=== PATIENT | female | born 1995 | race Caucasian/White ===

== ENCOUNTER 2024-12-06 17:54 | Emergency (ER) | payer MEDICAID ==
[~2024-12-06] VITALS: Ht 157.5 cm; Wt 61.7 kg
[2024-12-06 19:26] LABS: Urine Protein, UAD Negative (Negative)
[2024-12-06 19:31] LABS: Hematocrit 39.2 % (36.0-46.0); Hemoglobin 13.8 g/dL (12.2-16.2); Mean Corpuscular Hemoglobin 30.5 pg (28.0-32.0); Mean Corpuscular Volume 86.7 fL (80.0-100.0); Nucleated Red Blood Cells % 0.1 %
[2024-12-06 19:56] LABS: Albumin 4.3 g/dL (3.2-4.8); Anion Gap 11 (5-15); Calcium 9.0 mg/dL (8.7-10.4); Carbon Dioxide 21 mmol/L (20-31); Potassium 3.9 mmol/L (3.5-5.1); Sodium 139 mmol/L (136-145); Total Protein 7.0 g/dL (5.7-8.2)
[2024-12-06 19:58] LABS: Alanine Aminotransferase < 9 U/L (7-40); Alkaline Phosphatase 43 U/L (46-116); BUN/Creatinine Ratio 7.9 (10.0-20.0); Bilirubin, Total 0.2 mg/dL (0.2-1.0); Blood Urea Nitrogen < 5 mg/dL (9-23); Chloride 107 mmol/L (98-107); Glucose 70 mg/dL (74-106)
--- NOTE | 2024-12-06 19:58 | DVH ---
INDICATION: pelvic pain TECHNIQUE: Multiple real-time grayscale transabdominal sonographic images along with color and duplex Doppler of the uterus and ovaries were obtained. COMPARISON: None FINDINGS: The uterus measures 11.77 x 9.7 x 6.6 cm. Gestational sac and pole are noted in the e ndometrial canal. The right ovary measures 1.67 x 1.03 x 2.21 cm. Right ovarian volume is 1.99 cc. The left ovary measures 2.65 x 1.86 x 3.57 cm. Volume of the left ovary is 9.19 cc. Subsequent color and duplex Doppler interrogation of the ovaries demonstrated symmetric vascular flow to both ovaries, though this does not exclude the possibility of torsion due to the dual blood suppl y. Gestational sac measures 5.47 cm consistent with 11 weeks 3 days. Yolk sac is not visualized. [place]-rump length is 3.79 cm consistent with 10 weeks 5 days. heart rate is 173 beats per minute IMPRESSION: 1. Average gestational age of 11 weeks 1 day; GREGORIO: 06/26/2025 2. FHR: 173 beats per minute. 3. There appears to be a subchorionic hemorrhage adjacent to the gestational sac.
--- NOTE | 2024-12-06 20:33 | ED.PDOC ---
PEDIATRIC GENETIC COUNSELOR HPI Comments 29 y/o F presents with c/c of shooting pelvic pain that radiates to her upper abdomen Patient is 10 weeks with her 5th ([id number], 1 , 1 miscarriage), currently. She reports sudden, unprovoked, and atraumatic onset of pain, this morning, with associative one episode of diarrhea. Pain resolved for a few hours temporarily after eating' Diarrhea has resolved prior to ED arrival. Patient is unable to recall diarrhea appearance. Patient also reports morning sickness nausea and vomiting that she has had since the start of her current . She denies having any further acute symptoms. Patient denies any vaginal bleed. Patient has an upcoming appointment with PEDIATRIC GENETIC COUNSELOR next Friday on 12/13. HPI: Past medical history: Denies Past surgical history: Denies NGUYEN: HPI: Poor Historian. 29-year-old female one one miscarriage about 10 weeks gestation presents to emergency department for one episode of lower abdominal pain that radiated up to her upper abdomen in the morning. Patient has a associated diarrhea unsure of stool color. By the time I evaluated the patient, all her abdominal pain has resolved and her diarrhea has resolved. She had this pain in the morning with the diarrhea and then went away after she ate but came back again and was advised to come here to get checked. Denies any vaginal bleed or urinary symptoms or fever. Patient has been having morning sickness for awhile which is not new for her. She is seeing her OB Gyne doctor this coming Friday. Past Medical History: Past Surgical History: REVIEW OF SYSTEMS: CONSTITUTIONAL: Denies acute: fever, diaphoresis, chills, generalized weakness. HEAD: Denies acute: headache, photophobia Eyes: Denies acute: Double vision, vision loss, eye pain, eye discharge. EARS: Denies acute: tinnitus, hearing loss, ear discharge, ear pain, THROAT: Denies acute: sore throat, swelling, difficulty swallowing , pain with swallowing, change in voice. NECK: Denies acute: neck pain, neck swelling, stiff neck. HEART: Denies acute : chest pain, palpitations, LUNGS: Denies acute: SOB, wheezing, cough, hemoptysis ABDOMEN: Denies acute: , melena , hematemesis, hematochezia SKIN: Denies acute: rash, redness, lesions, itchiness. EXTREMITIES: Denies acute: calf pain, numbness, tingling, weakness, denies pain in extremity. Denies acute: Low back pain. Neuro: Denies acute: focal neurological deficit, motor or sensory focal neurological deficit, tremors, seizure like activity, confusion, dizziness, change in mental status, loss of bowel or bladder function, cauda equina like symptoms. : Denies acute: dysuria, hematuria, flank pain, increase in urinary frequency. PSYCH: Denies acute: hallucination, suicidal ideation, homicidal ideation. FEMALE: Denies acute: abnormal vaginal bleeding, foul odor, unusual discharge. PHYSICAL EXAM: General: ----no----acute distress, awake and alert. Head: normocephalic, atraumatic. Neck: supple, trachea is midline, no swelling. Throat: Normal phonation. Eyes:, no erythema, no purulent discharge, no proptosis, no icterus. Heart: regular rate, regular rhythm, no significant murmur appreciated. Lungs: no apparent respiratory distress, Able to speak in full sentences. No wheezing, no rhonchi, no crackles. No stridors Clear to auscultation bilaterally. Abdomen: non tender to palpation, non distended, soft, no guarding, no rebound, + bowel sounds. Neuro: Awake, Alert, oriented to name, self, situation, follows commands GCS=15. Speech is normal. Skin: no petechia, no purpura, no cyanosis, non-pale, not jaundice. Lower extremities: --no - Pitting edema no deformity, no focal swelling, no calf TTP. Makes eye contact. moves all four extremities. Face: no apparent facial droop. Ambulating in the ED independently. ED COURSE: DISCLAIMER: This medical document was created using an electronic medical record system with voice recognition software and computerized dictation system. Although this document has been carefully reviewed, there might still be some phonetic and typographical errors. Occasional wrong-word or "sound-alike" substitutions may have occurred due to the inherent limitations of voice recognition software. These areas are purely typographical due to imperfections of the software programs and do not reflect any compromise in the patient's medical care. Please read the chart carefully and recognize, using context, where these substitutions have occurred. Chief Complaint: Abdominal Pain Time Seen by MD: 20:20 Allergies: Coded Allergies: NO KNOWN ALLERGIES (Unverified , 11/28/13) Family History Family History: Unknown Social History Smoker: Non-Smoker Alcohol: Denies ETOH Use Drugs: Marijuana Was a procedure done? Was a procedure done?: No Differential Diagnosis (JOURNEYMAN SHEET METAL WORKER) Vaginal Bleeding: Other (DDX include Diverticulitis, colitis, gastroenteritis, acute abdomen, SBO, enteritis, constipation, volvulus, appendicitis, Gallbladder disease, choledocolithiasis, ascending cholangitis, pancreatitis, intraAbdominal mass/neoplasm, hepatitis, UTI, pylonephritis, kidney stone, aneurysm, dissection, Inflammatory bowel disease, gastroparesis, ischemic bowel,,,,,,ovarian torsion, ovarian cyst/mass, tubo-ovarian abscess, , ectopic , PID, STD.) X-Ray, Labs, Meds, VS Vital Signs Date Time Temp Pulse Resp B/P (MAP) Pulse Ox O2 Delivery O2 Flow Rate FiO2 12/06/24 21:17 98 Room Air* 0 21 12/06/24 21:13 98.2 75 12 115/71 (86) 98 98.2 12/06/24 17:56 98.2 72 16 115/65 98 98.2 Lab Test 12/06/24 19:10 12/06/24 18:57 Range/Units White Blood Count 8.0 4.4-10.8 10^3/uL Red Blood Count 4.52 4.0-5.20 10^6/uL Hemoglobin 13.8 12.2-16.2 g/dL Hematocrit 39.2 36.0-46.0 % Mean Corpuscular Volume 86.7 80.0-100.0 fL Mean Corpuscular Hemoglobin 30.5 28.0-32.0 pg Mean Corpuscular Hemoglobin Concent 35.1 32.0-36.0 g/dL Red Cell Distribution Width 13.3 11.8-14.3 % Platelet Count 208 140-450 10^3/uL Mean Platelet Volume 8.5 6.9-10.8 fL Neutrophils (%) (Auto) 69.0 37.0-80.0 % Lymphocytes (%) (Auto) 22.0 10.0-50.0 % Monocytes (%) (Auto) 7.2 0.0-12.0 % Eosinophils (%) (Auto) 1.4 0.0-7.0 % Basophils (%) (Auto) 0.4 0.0-2.0 % Neutrophils # (Auto) 5.5 1.6-8.6 10 ^3/uL Lymphocytes # (Auto) 1.8 0.4-5.4 10 ^3/uL Monocytes # (Auto) 0.6 0-1.3 10 ^3/uL Eosinophils # (Auto) 0.1 0-0.8 10 ^3/uL Basophils # (Auto) 0 0-0.2 10 ^3/uL Nucleated Red Blood Cells 0.1 % Sodium Level 139 136-145 mmol/L Potassium Level 3.9 3.5-5.1 mmol/L Chloride Level 107 98-107 mmol/L Carbon Dioxide Level 21 20-31 mmol/L Anion Gap 11 5-15 Blood Urea Nitrogen < 5 L 9-23 mg/dL Creatinine 0.63 0.550-1.02 mg/dL Glomerular Filtration Rate Calc 124 >90 mL/min BUN/Creatinine Ratio 7.9 L 10.0-20.0 Serum Glucose 70 L 74-106 mg/dL Calcium Level 9.0 8.7-10.4 mg/dL Total Bilirubin 0.2 0.2-1.0 mg/dL Aspartate Amino Transferase (AST) 18 13-40 U/L Alanine Aminotransferase (ALT) < 9 7-40 U/L Alkaline Phosphatase 43 L 46-116 U/L Total Protein 7.0 5.7-8.2 g/dL Albumin 4.3 3.2-4.8 g/dL Beta HCG, Quantitative 923113.9 H 1.5-4.2 mIU/mL Urine Color Light-yellow Yellow Urine Clarity Clear Clear Urine pH 5.5 5.0-9.0 Urine Specific [place] 1.021 1.001-1.035 Urine Protein Negative Negative Urine Ketones Negative Negative Urine Blood Negative Negative /uL Urine Nitrite Negative Negative Urine Bilirubin Negative Negative Urine Urobilinogen Normal Negative mg/dL Urine Leukocyte Esterase Negative Negative /uL Urine RBC <1 0 - 4 /hpf Urine Microscopic WBC < 1 0-5 /HPF Urine Squamous Epithelial Cells Few <5 /hpf Urine Bacteria None seen None Seen /hpf Urine Glucose Normal Normal mg/dL [facility] [address] [facility] [address] Ph: [phone] DIAGNOSTIC IMAGING Diagnostic Imaging Report : [id number] Signed PATIENT: SHARON NGUYEN ACCT: [id number] UNIT: [id number] : 1995 LOC: ER ROOM / BED: / AGE / SEX: 29 / F ADM STATUS: REG ER SERVICE 34 ORDERING PHYSICIAN: LOWELL JONES DO PROCEDURE(s): OB4US - OB ULTRASOUND COMP LESS 14WKS REASON: pelvic pain ORDER NUMBER(s): [id number], ACCESSION NUMBER(s): [id number] INDICATION: pelvic pain TECHNIQUE: Multiple real-time grayscale transabdominal sonographic images along with color and duplex Doppler of the uterus and ovaries were obtained. COMPARISON: None FINDINGS: The uterus measures 11.77 x 9.7 x 6.6 cm. Gestational sac and pole are noted in the endometrial canal. The right ovary measures 1.67 x 1.03 x 2.21 cm. Right ovarian volume is 1.99 cc. The left ovary measures 2.65 x 1.86 x 3.57 cm. Volume of the left ovary is 9.19 cc. Subsequent color and duplex Doppler interrogation of the ovaries demonstrated symmetric vascular flow to both ovaries, though this does not exclude the possibility of torsion due to the dual blood supply. Gestational sac measures 5.47 cm consistent with 11 weeks 3 days. Yolk sac is not visualized. [place]-rump length is 3.79 cm consistent with 10 weeks 5 days. heart rate is 173 beats per minute IMPRESSION: 1. Average gestational age of 11 weeks 1 day; GREGORIO: 06/26/2025 2. FHR: 173 beats per minute. 3. There appears to be a subchorionic hemorrhage adjacent to the gestational sac. ATED BY: IVETTE BOLANOS Jr., DO DICTATED DATE/TIME: 12/06/241955 SIGNED BY: IVETTE BOLANOS Jr., DO SIGNED DATE/TIME: 12/06/241955 CC: Time of 1ST Reevaluation: 20:50 Reevaluation 1ST: Unchanged Patient Education/Counseling: Diagnosis, Treatment, Need For Follow Up Family Education/Counseling: No Family Present Comments MDM: patient presented with the above HPI.---abdominal pain in and one episode of diarrhea---workup was initiated. patient was found with the above mentioned diagnosis. the following medications were ordered: please refer to order lists of meds and tests obtained by myself Dr. Jones. Patient ED course and VS have been stabilized. Patient has been reassessed in the ED and remained in a stable condition. Pertinent incidental findings were discussed with the patient and/or family. Patient/family voices understanding and is agreeable with plan. Patient has been observed in the ED adequate length of time to insure impr ovement/stability. Escalation of care considered: Consideration of escalation to observation or admission Patient denies any vaginal bleed or pelvic pain. Patient's symptoms have completely resolved prior to my evaluation without any interventions here. Patient was DISCHARGED home in a stable condition. All the reports of any imaging studies that were ordered by myself were reviewed by myself. Departure 1 Departure Time of Disposition: 20:35 Impression: Primary Impression: Abdominal pain during Additional Impressions: Subchorionic hemorrhage in first trimester Normal IUP (intrauterine ) on ultrasound Disposition: 01 HOME / SELF CARE / HOMELESS Condition: Stable Additional Instructions: Additional instructions: Please read all instructions provided in this packet carefully. You MUST follow-up with your primary care/family doctor in 1 to 2 days. If you are unable to see your primary care/family doctor, please return to our emergency room for re-assessment and re-evaluation in 1 to 2 days. Return to the emergency room here in our facility or to the nearest ER [place] if your symptoms change or worsen. CONSULTATIONS: you MUST Follow-up for consultation as soon as possible with: Dr.-OB Kilpatrick doctor as scheduled. You MUST call the consultants office yourself to make an appointment. You may n eed to arrange that through your insurance and/or your primary/family doctor. If you are unable to see the baby registry sales consultant in 1 to 2 days, you must return to our emergency room (or any other ER of your choice) for re-assessment and re- evaluation. Adequate fluid hydration. Although you have been discharged from the Emergency Department, this does not mean that you have a "clean bill of health". No definitive diagnosis for your symptoms has been made today. It is possible that you are in the process of developing a serious illness. This is why you must return to the ED without fail if any new or worsening symptoms develop. Absolute pelvic rest. No heavy lifting. Continue IUP in the vitamins. Below is a copy of your radiological report for follow up: [facility] [id number] [place] [address] Ph: [phone] DIAGNOSTIC IMAGING Diagnostic Imaging Report : [id number] Signed PATIENT: SHARON NGUYEN ACCT: [id number] UNIT: [id number] : 1995 LOC: ER ROOM / BED: / AGE / SEX: 29 / F ADM STATUS: REG ER SERVICE 34 ORDERING PHYSICIAN: LOWELL JONES DO PROCEDURE(s): OB4US - OB ULTRASOUND COMP LESS 14WKS REASON: pelvic pain ORDER NUMBER(s): [id number], ACCESSION NUMBER(s): [id number] INDICATION: pelvic pain TECHNIQUE: Multiple real-time grayscale transabdominal sonographic images along with color and duplex Doppler of the uterus and ovaries were obtained. COMPARISON: None FINDINGS: The uterus measures 11.77 x 9.7 x 6.6 cm. Gestational sac and pole are noted in the endometrial canal. The right ovary measures 1.67 x 1.03 x 2.21 cm. Right ovarian volume is 1.99 cc. The left ovary measures 2.65 x 1.86 x 3.57 cm. Volume of the left ovary is 9.19 cc. Subsequent color and duplex Doppler interrogation of the ovaries demonstrated symmetric vascular flow to both ovaries, though this does not exclude the possibility of torsion due to the dual blood supply. Gestational sac measures 5.47 cm consistent with 11 weeks 3 days. Yolk sac is not visualized. [place]-rump length is 3.79 cm consistent with 10 weeks 5 days. heart rate is 173 beats per minute IMPRESSION: 1. Average gestational age of 11 weeks 1 day; GREGORIO: 06/26/2025 2. FHR: 173 beats per minute. 3. There appears to be a subchorionic hemorrhage adjacent to the gestational sac. ATED BY: IVETTE BOLANOS Jr. DO DICTATED DATE/TIME: 12/06/241955 SIGNED BY: IVETTE BOLANOS Jr., DO SIGNED DATE/TIME: 12/06/241955 CC: Discharged With: Self Critical Care Note Critical Care Time?: No Stability Stability form required: No Heart Score Heart Score: Heart Score Response (Comments) Value History N/A 0 EKG N/A 0 Age N/A 0 Risk Factors N/A 0 Troponin N/A 0 Total 0 I personally scribed for LOWELL JONES DO ([email or web address]) on 12/06/24 at 20:33. Electronically submitted by Abhi Camarena ([email or web address]). I personally scribed for LOWELL JONES DO ([email or web address]) on 12/06/24 at 21:18. Electronically submitted by Abhi Camarena ([email or web address]). I personally scribed for LOWELL JONES DO ([email or web address]) on 12/07/24 at 04:31. Electronically submitted by Abhi Camarena ([email or web address]). LOWELL JONES DO Dec 06, 2024 20:33
[2024-12-06 21:13] VITALS: BP 115/71; PULSE 75; RESP 12; TEMP 98.2
[2024-12-06 21:17] VITALS: O2SAT 98
== END 2024-12-06 21:21 | disposition home or self-care (01) ==
LOC: ER 17:56
DX: O46.8X1 Other antepartum hemorrhage, first trimester (principal); O00.01 Abdominal pregnancy with intrauterine pregnancy; R10.20 Pelvic and perineal pain unspecified side; Z3A.10 10 weeks gestation of pregnancy; Z79.899 Other long term (current) drug therapy
CPT/HCPCS: 36415; 76801; 80053; 81001; 84702; 85025